=== PATIENT | female | born 1960 | race Caucasian/White ===

== ENCOUNTER 2018-05-04 09:27 | Emergency (ER) | payer SELFPAY ==
[2018-05-04 09:37] VITALS: BP 138/69
--- NOTE | 2018-05-04 09:53 | ER Document Report ---
HPI - HPI Patient complains to provider of: Medication refill, anxiety Time Seen by Provider: 05/04/18 09:31 Onset: Other Quality of pain: No pain Pain Level: Denies Context: Patient presents emergency department with complaints that she is about to run out of her blood pressure medication and that she is feeling very anxious. Patient reports that she just moved to [place] to take care of her mother. She is currently working at [employer] up on the fourth floor. She reports she is having trouble sleeping. She reports she has been doubling up on her blood pressure medication because she thought her blood pressure was high. She discovered that it was dropping her blood pressure too low so she stopped taking that. She went to two urgent cares to get a refill on her blood pressure medication but they declined. Patient reports that she used to take Zoloft in the past. She denies other symptoms such as fever nausea vomiting diarrhea. She denies any suicidal or homicidal thoughts. She reports she has an appointment with Dr. Roche May 23. Associated Symptoms: None Exacerbated by: Denies Relieved by: Denies Similar symptoms previously: Yes Recently seen / treated by doctor: Yes Past Medical History - General Information source: Patient - Social History Smoking Status: Unknown if Ever Smoked Cigarette use (# per day): No Frequency of alcohol use: None Drug Abuse: None Occupation: nuclear engineer Lives with: Family Family History: None Patient has suicidal ideation: No Patient has homicidal ideation: No - Past Medical History Cardiac Medical History: Reports: Hx Hypertension Endocrine Medical History: Reports: Hx Hypothyroidism Renal/ Medical History: Denies: Hx Peritoneal Dialysis Psychiatric Medical History: Reports: Hx Anxiety Past Surgical History: Reports: Hx Appendectomy Vertical Provider Document - CONSTITUTIONAL Agree With Documented VS: Yes Exam Limitations: No Limitations General Appearance: WD/WN, No Apparent Distress - Tearful - INFECTION CONTROL TRAVEL OUTSIDE OF THE [place] IN LAST 30 DAYS: No - HEENT HEENT: Atraumatic, Normocephalic - NECK Neck: Normal Inspection, Supple. negative: Lymphadenopathy-Left, Lymphadenopathy-Right - RESPIRATORY Respiratory: Breath Sounds Normal, No Respiratory Distress - CARDIOVASCULAR Cardiovascular: Regular Rate, Regular Rhythm - GI/ABDOMEN Gastrointestinal: Abdomen Soft - MUSCULOSKELETAL/EXTREMETIES Musculoskeletal/Extremeties: JERILYN LOYOLA - NEURO Level of Consciousness: Awake, Alert, Appropriate Motor/Sensory: No Motor Deficit - DERM Integumentary: Warm, Dry Course - Re-evaluation Re-evalutation: 05/04/18 13:53 Patient provided with script for 15 days of norvasc. He was also given written resources to obtain mental health counseling for antianxiety medications. Emotional support was given. Patient was instructed to return to the emergency department for any concerns. Dictation of this chart was performed using voice recognition software; therefore, there may be some unintended grammatical errors. - Vital Signs Vital signs: Temp Pulse Resp BP Pulse Ox 97.8 F 66 16 138/69 H 96 05/04/18 09:35 05/04/18 09:35 05/04/18 09:35 05/04/18 09:35 05/04/18 09:35 Discharge - Discharge Clinical Impression: Medication refill, Anxiety High blood pressure Qualifiers: Hypertension type: unspecified Qualified Code(s): I10 - Essential (primary) hypertension Condition: Stable Disposition: HOME, SELF-CARE Instructions: Anxiety ([facility]), Calcium Channel Blockers ([facility]), Use of Diphenhydramine, High Blood Pressure ([facility]) Additional Instructions: *You have been evaluated for medication refill, anxiety, history of high blood pressure *Take benadryl as indicated *Take medication as prescribed *Follow up with mental health as indicated *Follow up with Dr Roche as scheduled May.23 *Return to ED for worsening condition, changes, needs Prescriptions: Amlodipine Besylate [Norvasc 5 mg Tablet] 5 mg PO DAILY #15 tablet Forms: Elevated Blood Pressure
== END 2018-05-04 10:06 | disposition home or self-care (01) ==
LOC: ER 09:27
DX: Z76.0 Encounter for issue of repeat prescription (principal); I10 Essential (primary) hypertension; Z91.14 Patient's other noncompliance with medication regimen; F41.9 Anxiety disorder, unspecified
CPT/HCPCS: 99281

== ENCOUNTER → 2018-12-24 | Outpatient (CLI) | payer BC ==
[2018-12-24 07:35] LABS: ABSOLUTE EOSINOPHILS # (AUTO) 0.1 10^3/uL (0.0-0.6); ABSOLUTE LYMPHOCYTES (AUTO) 1.5 10^3/uL (0.5-4.7); ABSOLUTE MONOCYTES (AUTO) 0.4 10^3/uL (0.1-1.4); ABSOLUTE NEUT (AUTO) 4.3 10^3/uL (1.7-8.2); BASOPHILS % (AUTO) 0.6 % (0-2); EOSINOPHILS % (AUTO) 1.7 % (0-6); HEMATOCRIT 40.1 % (36.0-47.0); HEMOGLOBIN 13.8 g/dL (12.0-15.5); LYMPHOCYTES % (AUTO) 24.2 % (13-45); MEAN CORPUSCULAR HEMOGLOBIN 32.4 pg (27.0-33.4); MEAN CORPUSCULAR HGB CONC 34.4 g/dL (32.0-36.0); MEAN CORPUSCULAR VOLUME 94 fl (80-97); MONOCYTES % (AUTO) 6.8 % (3-13); PLATELET COUNT 212 10^3/uL (150-450); RED BLOOD COUNT 4.25 10^6/uL (3.72-5.28); RED CELL DISTRIBUTION WIDTH 13.5 % (11.5-14.0); SEGMENTED NEUTROPHILS % (AUTO) 66.7 % (42-78); TOTAL CELLS COUNTED % (AUTO) 100 %; WHITE BLOOD COUNT 6.4 10^3/uL (4.0-10.5)
[2018-12-24 07:57] LABS: ALANINE AMINOTRANSFERASE 18 U/L (9-52); ALBUMIN 4.3 g/dL (3.5-5.0); ALKALINE PHOSPHATASE 128 U/L (38-126); ANION GAP 10 (5-19); ASPARTATE AMINO TRANSFERASE 22 U/L (14-36); BILIRUBIN,DIRECT 0.3 mg/dL (0.0-0.4); BILIRUBIN,TOTAL 0.6 mg/dL (0.2-1.3); BLOOD UREA NITROGEN 31 mg/dL (7-20); CALCIUM 9.3 mg/dL (8.4-10.2); CARBON DIOXIDE 25 mmol/L (22-30); CHLORIDE 104 mmol/L (98-107); CHOLESTEROL 161.28 mg/dL (0-200); GLUCOSE 94 mg/dL (75-110); POTASSIUM 4.3 mmol/L (3.6-5.0); SODIUM 139.1 mmol/L (137-145); TOTAL PROTEIN 7.1 g/dL (6.3-8.2); TRIGLYCERIDES 269 mg/dL (<150)
[2018-12-24 08:08] LABS: DIRECT LDL 84 mg/dL (<100)
[2018-12-24 08:13] LABS: FREE T4 (FREE THYROXINE) 0.94 ng/dL (0.78-2.19); VLDL CHOLESTEROL 53.8 mg/dL (10-31)
[2018-12-24 08:15] LABS: FREE T3 3.39 pg/mL (2.77-5.27)
[2018-12-24 08:27] LABS: THYROID STIMULATING HORMONE 2.65 uIU/mL (0.47-4.68)
== END ==
LOC: LAB 07:19
PROVIDERS: ATTEND Internal Medicine Geriatric Medicine
DX: I10 Essential (primary) hypertension (principal); E03.9 Hypothyroidism, unspecified
CPT/HCPCS: 36415; 80053; 80061; 84436; 84439; 84443; 84481; 85025; 86376

== ENCOUNTER → 2020-01-30 | Outpatient (CLI) | payer BC ==
--- NOTE | 2020-01-30 10:14 | WOMENS IMAGING REPORT ---
EXAM DESCRIPTION: U/S ABDOMEN COMPLETE W/DOPPLER IMAGES COMPLETED DATE/TIME: 01/30/2020 9:57 am REASON FOR STUDY: R10.11 RIGHT UPPER QUADRANT PAIN R10.11 RIGHT UPPER QUADRANT PAIN COMPARISON: None. TECHNIQUE: Dynamic and static grayscale images acquired of the abdomen and recorded on PACS. Additio nal selected color Doppler and spectral images recorded. LIMITATIONS: None. FINDINGS: PANCREAS: No masses. Visualized pancreatic duct normal caliber. LIVER: Echotexture is coarse with increased echogenicity consistent with fatty infiltration. LIVER VASCULATURE: Normal directional flow of the main portal vein and hepatic veins. GALLBLADDER: No stones. Normal wall thickness. No pericholecystic fluid. ULTRASOUND-DETECTED KAISER'S SIGN: Negative. INTRAHEPATIC DUCTS AND COMMON DUCT: CBD and intrahepatic ducts normal caliber. No filling defects. INFERIOR VENA CAVA: Normal flow. AORTA: No aneurysm. RIGHT KIDNEY: Normal size. Normal echogenicity. No solid or suspicious masses. No hydronephros is. No calcifications. LEFT KIDNEY: Normal size. Normal echogenicity. No solid or suspicious masses. No hydronephrosi s. No calcifications. SPLEEN:15.4 cm. No focal lesions. PERITONEAL AND PLEURAL SPACES: No ascites or effusions. OTHER: No other significant finding. IMPRESSION: Fatty liver. Mild splenomegaly. TECHNICAL DOCUMENTATION: JOB ID: [id number] [email or web address]- All Rights Reserved Reading location - IP/workstation name: [email or web address]
== END ==
LOC: WI 08:47
PROVIDERS: ATTEND Physician Assistant Medical
DX: R10.11 Right upper quadrant pain (principal); K76.0 Fatty (change of) liver, not elsewhere classified; R16.1 Splenomegaly, not elsewhere classified
CPT/HCPCS: 76700; 93976

== ENCOUNTER → 2020-06-13 | Outpatient (CLI) | payer BC ==
[~2020-06-13] MED LIST: COVID-19 VACCINE (PFIZER)/PF 30 MCG/0.3 ML VIAL IM ONE; EPINEPHRINE INJ/PF 1 MG/1 ML AMPULE IM PRN
== END ==
LOC: EMPHEALTH 08:49
PROVIDERS: ATTEND Internal Medicine
DX: Z23 Encounter for immunization (principal)
CPT/HCPCS: 91300

== ENCOUNTER → 2020-07-04 | Outpatient (CLI) | payer BC | LOC: EMPHEALTH 08:54 | PROVIDERS: ATTEND Internal Medicine | DX: Z23 Encounter for immunization (principal) | CPT/HCPCS: 91300 ==